=== PATIENT | male | born 1950 | race Caucasian/White ===

== ENCOUNTER → 2024-10-09 08:57 | Outpatient (REF) | payer OTHER, SELFPAY | LOC: RCS 08:57 | PROVIDERS: ATTENDING PHYSICIAN Internal Medicine; FAMILY PHYSICIAN Family Medicine | DX: I20.9 Angina pectoris, unspecified (principal); R06.09 Other forms of dyspnea; E66.811 Obesity, class 1; E78.00 Pure hypercholesterolemia, unspecified | CPT/HCPCS: 78452; 93017; A9500 ==

== ENCOUNTER 2024-10-17 08:43 | Day surgery (SDC) | payer OTHER, SELFPAY ==
[2024-10-17] VITALS (10 sets, daily range): BP systolic 129–178; BP diastolic 67–97; BMI 33.3
[2024-10-17] MEDS: NSS 1000 IV (10:45)
[2024-10-17] MEDS: NORVASC 5 MG PO (11:43)
--- NOTE | 2024-10-17 18:00 | ITS.CL.PN ---
[facility] - Procedure Note
Procedure
Procedure Note:
CARDIAC CATHETERIZATION REPORT
Date of Procedure: 10/17/24
Referring: Dr. Brandin Pringle MD
INDICATION: chest pain, positive cardiac stress test
PROCEDURE:
1. Left heart catheterization
2. Coronary angiography
ACCESS:
6 [place] right radial artery.
CATHETERS:
1. 6 [place] JR4
2. 6 [place] JL3.5
HEMODYNAMIC DATA
LV 139/5 (EDP 11) mmHg
AO 126/68 (mean 93) mmHg
CORONARY ANGIOGRAPHY
Dominance: right
Left Main: short, normal
LAD: large vessel giving rise to a large D1. There are mild luminal irregularities.
Circumflex: large vessel giving rise to a small OM1, moderate caliber OM2, and large branching OM3. There is a 60% stenosis in the OM2 and mild disease otherwise.
RCA: large vessel giving rise to a large RPDA and several small RPL branches. There is mild diffuse disease in the prox-mid vessel.
RADIATION:
Radiation (mGy): 382
DAP (cm2.Gy): 22.9
Fluoroscopy time (minutes): 2.5
CONCLUSIONS
1. Single vessel obstructive coronary artery disease in a right dominant system with 60% stenosis in OM2.
2. Normal LV filling pressure and no significant gradient on pullback across the aortic valve.
RECOMMENDATIONS:
1. Expectant management after cardiac catheterization via right radial approach
2. Aggressive secondary prevention of coronary artery disease with addition of PCSK9i for LDL goal <70
3. Addition of amlodipine for possible anti-anginal benefit and blood pressure control (preferred over beta kadi given very prolonged NM)
4. If patient continues to have symptoms concerning for angina despite optimal medical therapy, PCI of the OM2 would be appropriate
Copy to: Dr. Brandin Pringle MD (cardiolgist); Dr. Austin Ramos MD (PCP)
Signed: Franklin Rizo MD, PhD
== END 2024-10-17 13:30 | disposition home or self-care (01) ==
LOC: CATH 08:43
PROVIDERS: ATTENDING PHYSICIAN Student in an Organized Health Care Education/Training Program; FAMILY PHYSICIAN Family Medicine; OTHER PHYSICIAN Internal Medicine
DX: I25.10 Atherosclerotic heart disease of native coronary artery without angina pectoris (principal); R07.9 Chest pain, unspecified; R94.39 Abnormal result of other cardiovascular function study; I10 Essential (primary) hypertension; E78.5 Hyperlipidemia, unspecified; K21.9 Gastro-esophageal reflux disease without esophagitis; G47.33 Obstructive sleep apnea (adult) (pediatric); Z87.891 Personal history of nicotine dependence; Z85.46 Personal history of malignant neoplasm of prostate; Z79.82 Long term (current) use of aspirin
CPT/HCPCS: 93458; C1894; Q9967

== ENCOUNTER → 2024-10-30 08:56 | Outpatient (REF) | payer OTHER, SELFPAY | LOC: RCS 08:56 | PROVIDERS: ATTENDING PHYSICIAN Internal Medicine; FAMILY PHYSICIAN Family Medicine | DX: R06.09 Other forms of dyspnea (principal) | CPT/HCPCS: 93306 ==

== ENCOUNTER → 2025-01-06 10:57 | Outpatient (REF) | payer OTHER, SELFPAY | LOC: HWRAD 10:57 | PROVIDERS: ATTENDING PHYSICIAN Internal Medicine Critical Care Medicine; FAMILY PHYSICIAN Family Medicine | DX: R06.09 Other forms of dyspnea (principal) | CPT/HCPCS: 71046 ==